=== PATIENT | male | born 1940 | race Caucasian/White ===

== ENCOUNTER → 2019-08-09 10:57 | Outpatient (BNVA) | payer OTHER, SELFPAY | PROVIDERS: Family Provider Family Medicine; PCP Family Medicine; Visit Provider Urology | DX: N40.1 Benign prostatic hyperplasia with lower urinary tract symptoms (principal) | CPT/HCPCS: 81001 ==

== ENCOUNTER → 2021-01-12 14:06 | Outpatient (BNVA) | payer OTHER, SELFPAY | PROVIDERS: Family Provider Family Medicine; PCP Family Medicine; Visit Provider Nurse Practitioner Family | DX: Z20.822 Contact with and (suspected) exposure to COVID-19 (principal); J06.9 Acute upper respiratory infection, unspecified | CPT/HCPCS: 87635 ==

== ENCOUNTER 2021-01-15 10:45 | Outpatient (CLI) | payer OTHER, SELFPAY ==
[2021-01-15 11:38] VITALS: BP 134/82; PULSE 75; RESP 18; TEMP 36.8; O2SAT 95; BMI 30.7
[2021-01-15 12:05] VITALS: BP 118/64; PULSE 63; RESP 16; O2SAT 97
[2021-01-15 13:08] VITALS: BP 129/74; PULSE 57; RESP 16; TEMP 36.9
== END 2021-01-15 14:38 | disposition home or self-care (01) ==
PROVIDERS: PCP Family Medicine; Visit Provider Nurse Practitioner Family
DX: U07.1 COVID-19 (principal)
CPT/HCPCS: 96365

== ENCOUNTER 2025-01-02 14:40 | Outpatient (CLI) | payer OTHER, SELFPAY ==
--- NOTE | 2025-01-02 14:51 | MR_ITS ---
WS: [id number] MRI LEFT SHOULDER NONCONTRAST TECHNIQUE: Sagittal T2, coronal T1, T2 and proton density imaging. Axial gradient PDE imaging. CLINICAL INFORMATION: PAIN IN LEFT SHOULDER/POSTPROCEDURAL STATES COMPARISON: MRI 2013 FINDINGS: Postoperative changes resection of the distal clavicle. Mild narrowing of the subacromial space. Interval rotator cuff anchors with rotator cuff repair. 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 Supraspinatus is retracted to the mid acromion. Retraction measures approximately 2.0 cm with complete full-thickness tear. Chronic thinning of the infraspinatus with tendinopathy appears intact. Partial thickness tear at the infraspinatus insertion. Fluid and edema at the AC joint. Small joint effusion. Teres minor appears intact. Tendinopathy subscapularis which appears intact. Small interstitial tears in the subscapularis tendon. Biceps tendon intact within the bicipital groove. Tendinopathy intra-articular biceps tendon with partial intrasubstance tears in the proximal intra-articular biceps tendon. Advanced gender narrowing of the glenohumeral articulation. Degenerative fraying of the glenoid labrum. MR/MR shoulder LT wo con* [id number] IMPRESSION: 1. New recurrent full-thickness tear of the supraspinatus with tendon retracti on to the mid acromion described above. 2. Tendinopathy with chronic thinning infraspinatus. Small insertional tear di stally. 3. Tendinopathy subscapularis tendon with small interstitial tears which remai ns intact. 4. Biceps tendon appears intact within the bicipital groove. 5. Partial-thickness intrasubstance tears with tendinopathy involving the prox imal intra-articular biceps tendon 6. 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
== END 2025-01-02 14:41 | disposition home or self-care (01) ==
LOC: RAD 14:46
PROVIDERS: PCP Family Medicine; Visit Provider Nurse Practitioner Family
DX: M75.122 Complete rotator cuff tear or rupture of left shoulder, not specified as traumatic (principal); M19.012 Primary osteoarthritis, left shoulder; M75.92 Shoulder lesion, unspecified, left shoulder; Z98.890 Other specified postprocedural states
CPT/HCPCS: 73221